=== PATIENT | female | born 2005 | race African-American/Black ===

== ENCOUNTER 2025-06-09 14:47 | Emergency (ER) | payer MEDICAID ==
[~2025-06-09] VITALS: Ht 165.1 cm; Wt 61.0 kg
[2025-06-09 14:49] VITALS: O2SAT 98
[2025-06-09 15:15] LABS: BASOPHILS % 0.5 % (0.0-2.0); EOSINOPHILS % 2.0 % (0.0-5.0); HEMATOCRIT. 34.0 % (36.0-48.0); HEMOGLOBIN. 10.9 g/dL (12.0-16.0); LYMPHOCYTES % 23.2 % (20.0-50.0); MEAN PLATELET VOLUME 8.7 fl (7.4-10.4); MONOCYTES % 5.7 % (2.0-8.0); NEUTROPHILS % 68.6 % (40.0-76.0); PLATELET 273 x1000/uL (130-400); RED BLOOD CELL COUNT 4.43 mill/uL (4.2-5.4); RED CELL DISTRIBUTION WIDTH 20.1 % (11.6-14.6)
[2025-06-09] MEDS: ONDANSETRON 4MG ODT PO ONE (15:23)
[2025-06-09] MEDS: MAGNESIUM/ALUMINUM HYDROXIDE/SIMETHICONE 30ML UDC PO ONE (15:23)
[2025-06-09 15:28] LABS: HCG SCREEN NEGATIVE
[2025-06-09 15:30] LABS: CREATININE 0.7 mg/dL (0.6-1.0)
[2025-06-09 15:31] LABS: UREA NITROGEN BLOOD < 5 mg/dL (9-23)
[2025-06-09 15:32] LABS: ASPARTATE AMINOTRANSFERASE 27 IU/L (<34)
[2025-06-09 15:33] LABS: BILIRUBIN DIRECT 0.9 mg/dL (<=3.0); BILIRUBIN TOTAL 3.3 mg/dL (0.1-1.0); PROTEIN TOTAL 6.4 g/dL (6.0-8.3)
[2025-06-09] MEDS: ONDANSETRON HCL 4MG/2ML INJ IV ONE (16:32)
[2025-06-09] MEDS: SODIUM CHLORIDE 0.9% 1,000 ML IV ONE (16:33)
[2025-06-09 17:50] VITALS: BP 109/74; PULSE 69; RESP 16; TEMP 36.8; O2SAT 100
== END 2025-06-09 17:52 | disposition home or self-care (01) ==
LOC: ER 14:47
DX: K29.20 Alcoholic gastritis without bleeding (principal); F12.90 Cannabis use, unspecified, uncomplicated; Z88.0 Allergy status to penicillin
CPT/HCPCS: 80076; 80048; 84703; 83690; 85025; 36415; 96361; 96374; 99283; Q0162; J2405; J7030; Z7610